=== PATIENT | male | born 1955 | race Asian ===

== ENCOUNTER 2021-05-19 21:57 | Inpatient (IN) | payer MEDICARE, OTHER ==
[~2021-05-19] VITALS: Ht 172.7 cm; Wt 68.2 kg
[2021-05-19] MEDS ORDERED: acetaminophen 325mg tablet PO ONE (22:15)
[2021-05-19] MEDS ORDERED: dexamethasone sod phosphate 10mg/ml inj IV STA (22:56)
--- NOTE | 2021-05-19 22:56 | NUR ---
WALKED TO BED 1 FROM DECK, INITIAL 02 86% THEN UP TO 91% RA.
[2021-05-19] MEDS ORDERED: normal saline 1000ml 1,000 ML IV ONE (23:00)
[2021-05-19 23:37] LABS: EOSINOPHILS % (AUTO) 0 % (0-6); LYMPHOCYTES # (AUTO) 0.5 X10'3 (1.1-4.8); LYMPHOCYTES % (AUTO) 5.6 % (21-51); MEAN PLATELET VOLUME 10.9 FL (7.4-10.4); MONOCYTES # (AUTO) 0.6 X10'3 (0-0.9); RED BLOOD COUNT 6.45 X10'6 (4.70-6.10)
[2021-05-19 23:38] LABS: BASOPHILS % (AUTO) 0.2 % (0-1); HEMATOCRIT 44.3 % (42.0-52.0); HEMOGLOBIN 14.3 g/dl (14.0-17.9); MEAN CORPUSCULAR HEMOGLOBIN 22.2 PG (27.0-31.0); MEAN CORPUSCULAR HGB CONC 32.3 g/dL (33.0-36.5); MEAN CORPUSCULAR VOLUME 68.7 FL (78-98); MONOCYTES % (AUTO) 6.8 % (2-12); NEUTROPHILS # (AUTO) 7.2 X10'3 (1.8-7.7); NEUTROPHILS % (AUTO) 87.4 % (42-75); PLATELET COUNT 170 X10'3 (140-440); RED CELL DISTRIBUTION WIDTH 13.9 % (11.5-14.5); WHITE BLOOD COUNT 8.3 X10'3 (4.5-11.0)
[2021-05-20 00:10] LABS: ALANINE AMINOTRANSFERASE 423 U/L (12-78); ALBUMIN 2.5 G/DL (3.4-5.0); ALBUMIN/GLOBULIN RATIO 0.6 (1.1-1.5); ALKALINE PHOSPHATASE 124 IU/L (46-116); ANION GAP 9 (8-16); ASPARTATE AMINO TRANSFERASE 232 U/L (10-37); BILIRUBIN,TOTAL 1.2 MG/DL (0.1-1.0); BLOOD UREA NITROGEN 19 MG/DL (7-18); BUN/CREATININE RATIO 14.4 (5.4-32.0); CALCIUM 8.2 MG/DL (8.5-10.1); CHLORIDE 98 MMOL/L (99-107); CREATININE 1.32 MG/DL (0.60-1.10); GLUCOSE 105 MG/DL (70-104); POTASSIUM 4.6 MMOL/L (3.5-5.1); SODIUM 129 MMOL/L (135-145); TOTAL CARBON DIOXIDE 21.9 MMOL/L (24-32); TOTAL PROTEIN 6.9 G/DL (6.4-8.2); eGFR 54 ML/MIN
[2021-05-20 00:35] LABS: C-REACTIVE PROTEIN 5.93 MG/DL (0.0-0.5); FERRITIN 875 NG/ML (26-388); LACTATE DEHYDROGENASE 382 U/L (85-227); TROPONIN I < 0.04 NG/ML (0.0-0.05)
[2021-05-20 00:37] LABS: LARGE PLATELETS FEW; MICROCYTOSIS 2+; PLATELET ESTIMATE NORMAL
[2021-05-20 00:40] LABS: D-DIMER 0.83 MG/L FEU (0-0.50)
[2021-05-20] MEDS ORDERED: iohexol 350MG/ML 100ml bottle IV ONE (01:03)
[2021-05-20] MEDS ORDERED: acetaminophen 325mg tablet PO PRN (01:55)
[2021-05-20] MEDS ORDERED: potassium Cl 40MEQ/1/2NS 520ml 520 ML IV PRN ×2 (01:55)
[2021-05-20] MEDS ORDERED: magnesium 4gm in 100ml NS 100 ML IV PRN (01:55)
[2021-05-20] MEDS ORDERED: magnesium Cl slow-release 64mg tablet PO PRN (01:55)
[2021-05-20] MEDS ORDERED: magnesium 2GM in 50ml NS 50 ML IV PRN (01:55)
[2021-05-20] MEDS ORDERED: potassium Cl 20 mEq SR tablet PO PRN ×2 (01:55)
[2021-05-20] MEDS ORDERED: ondansetron/PF 4mg/2ml inj IV PRN (01:55)
[2021-05-20] MEDS: normal saline 1000ml 1,000 ML IV SCH ×3 (02:07→21:23)
[2021-05-20] MEDS ORDERED: NO HOME MEDS (02:09)
--- NOTE | 2021-05-20 06:25 | NUR ---
PAGER ID: [phone] MESSAGE: Clem Lui [id number] Pt. arrived from ER. Needing 4LPM via N/c to sat at 91% and BP 86/43 with hr 69. Want me to give liter bolus per protocol? Yarely [id number]
[2021-05-20 06:26] VITALS: BP 86/43
[2021-05-20] MEDS ORDERED: normal saline 1000ml 1,000 ML IVB ONE (06:40)
--- NOTE | 2021-05-20 06:48 | NUR ---
Gave report to Darcie OGDEN.
--- NOTE | 2021-05-20 06:49 | NUR ---
Patient in room ORTHO 4006. I have received report from ALIN Pritchett and had the opportunity to ask questions and assume patient care.
[2021-05-20] MEDS: K and/or MAG REPLACEMENT MC SCH ×2 (08:00→20:00)
[2021-05-20] MEDS: dexamethasone 4mg tablet PO SCH (08:24)
[2021-05-20] MEDS: enoxaparin 40mg/0.4ml syringe SUBCUT SCH (08:24)
[2021-05-20 10:00] VITALS: BP 105/67
[2021-05-20 10:47] LABS: ALANINE AMINOTRANSFERASE 342 U/L (12-78); ALBUMIN 2.3 G/DL (3.4-5.0); ALBUMIN/GLOBULIN RATIO 0.5 (1.1-1.5); ALKALINE PHOSPHATASE 114 IU/L (46-116); ASPARTATE AMINO TRANSFERASE 127 U/L (10-37); BILIRUBIN,DIRECT 0.5 MG/DL (0-0.3); BILIRUBIN,TOTAL 0.9 MG/DL (0.1-1.0); TOTAL PROTEIN 6.7 G/DL (6.4-8.2)
[2021-05-20 14:00] VITALS: BP 117/72
--- NOTE | 2021-05-20 16:42 | NUR ---
Page Sent PAGER ID: [phone] MESSAGE: SAM [id number] RE: MARIKA BEDOLLA [id number] PT'S ULTRASOUND HAS BEEN READ AND REPORT IS AVAILABLE. STATES THERE IS A SUGGESTION OF PORTAL HTN.
--- NOTE | 2021-05-20 18:29 | NUR ---
Problems reprioritized. Patient report given, questions answered & plan of care reviewed with ALIN LION.
[2021-05-20 18:30] VITALS: BP 114/70
[2021-05-20] MEDS ORDERED: temazepam 15mg capsule PO PRN (21:00)
[2021-05-20 22:00] VITALS: BP 110/69
[2021-05-21 02:10] VITALS: BP 107/65
[2021-05-21 06:00] VITALS: BP 108/63
--- NOTE | 2021-05-21 06:08 | NUR ---
Patient in room ORTHO 4006. I have received report from ALIN LION and had the opportunity to ask questions and assume patient care.
[2021-05-21 07:33] LABS: BASOPHILS % (AUTO) 0.1 % (0-1); EOSINOPHILS % (AUTO) 0 % (0-6); HEMATOCRIT 41.1 % (42.0-52.0); HEMOGLOBIN 12.8 g/dl (14.0-17.9); LYMPHOCYTES # (AUTO) 0.4 X10'3 (1.1-4.8); LYMPHOCYTES % (AUTO) 3.1 % (21-51); MEAN CORPUSCULAR HEMOGLOBIN 21.6 PG (27.0-31.0); MEAN CORPUSCULAR HGB CONC 31.2 g/dL (33.0-36.5); MEAN CORPUSCULAR VOLUME 69.2 FL (78-98); MEAN PLATELET VOLUME 11.1 FL (7.4-10.4); MONOCYTES # (AUTO) 0.6 X10'3 (0-0.9); MONOCYTES % (AUTO) 4.6 % (2-12); NEUTROPHILS # (AUTO) 11.8 X10'3 (1.8-7.7); NEUTROPHILS % (AUTO) 92.2 % (42-75); PLATELET COUNT 172 X10'3 (140-440); RED BLOOD COUNT 5.93 X10'6 (4.70-6.10); RED CELL DISTRIBUTION WIDTH 14.1 % (11.5-14.5); WHITE BLOOD COUNT 12.8 X10'3 (4.5-11.0)
[2021-05-21 07:48] LABS: ANION GAP 10 (8-16); BLOOD UREA NITROGEN 17 MG/DL (7-18); BUN/CREATININE RATIO 21.5 (5.4-32.0); CALCIUM 7.7 MG/DL (8.5-10.1); CHLORIDE 107 MMOL/L (99-107); CREATININE 0.79 MG/DL (0.60-1.10); GLUCOSE 119 MG/DL (70-104); MAGNESIUM 2.5 MG/DL (1.5-2.4); POTASSIUM 4.3 MMOL/L (3.5-5.1); SODIUM 138 MMOL/L (135-145); TOTAL CARBON DIOXIDE 21.1 MMOL/L (24-32); eGFR > 90 ML/MIN
[2021-05-21] MEDS: normal saline 1000ml 1,000 ML IV SCH (07:54)
[2021-05-21] MEDS: enoxaparin 40mg/0.4ml syringe SUBCUT SCH ×2 (07:54→21:00)
[2021-05-21] MEDS: dexamethasone 4mg tablet PO SCH (07:54)
[2021-05-21] MEDS: K and/or MAG REPLACEMENT MC SCH ×2 (08:00→20:00)
[2021-05-21 10:00] VITALS: BP 108/60
[2021-05-21 10:43] LABS: HYPOCHROMASIA 1+; MICROCYTOSIS 2+; PLATELET ESTIMATE NORMAL
[2021-05-21 14:00] VITALS: BP 113/63
[2021-05-21] MEDS: methylPREDNISolone sod succ/PF 40mg inj. IV SCH (15:31)
[2021-05-21 18:30] VITALS: BP 109/72
--- NOTE | 2021-05-21 18:42 | NUR ---
Problems reprioritized. Patient report given, questions answered & plan of care reviewed with ALIN LION.
[2021-05-21] MEDS: famotidine 20mg tablet PO SCH (20:59)
[2021-05-21 22:00] VITALS: BP 114/75
[2021-05-22] MEDS: methylPREDNISolone sod succ/PF 40mg inj. IV SCH ×3 (00:34→15:27)
[2021-05-22 02:00] VITALS: BP 128/78
[2021-05-22 06:00] VITALS: BP 111/73
--- NOTE | 2021-05-22 06:18 | NUR ---
Problems reprioritized. Patient report given, questions answered & plan of care reviewed with ALIN LION.
[2021-05-22] MEDS: famotidine 20mg tablet PO SCH (07:56)
[2021-05-22] MEDS: enoxaparin 40mg/0.4ml syringe SUBCUT SCH (07:56)
[2021-05-22] MEDS: K and/or MAG REPLACEMENT MC SCH (08:00)
[2021-05-22 08:29] LABS: BASOPHILS % (AUTO) 0.2 % (0-1); EOSINOPHILS % (AUTO) 0 % (0-6); HEMATOCRIT 38.8 % (42.0-52.0); HEMOGLOBIN 12.4 g/dl (14.0-17.9); LYMPHOCYTES # (AUTO) 0.3 X10'3 (1.1-4.8); LYMPHOCYTES % (AUTO) 3.1 % (21-51); MEAN CORPUSCULAR HGB CONC 32.1 g/dL (33.0-36.5); MEAN CORPUSCULAR VOLUME 68.5 FL (78-98); MONOCYTES # (AUTO) 0.3 X10'3 (0-0.9); MONOCYTES % (AUTO) 2.5 % (2-12); NEUTROPHILS # (AUTO) 10.1 X10'3 (1.8-7.7); NEUTROPHILS % (AUTO) 94.2 % (42-75); PLATELET COUNT 200 X10'3 (140-440); RED BLOOD COUNT 5.66 X10'6 (4.70-6.10); RED CELL DISTRIBUTION WIDTH 14.3 % (11.5-14.5); WHITE BLOOD COUNT 10.8 X10'3 (4.5-11.0)
[2021-05-22 08:36] LABS: ANION GAP 7 (8-16); BLOOD UREA NITROGEN 16 MG/DL (7-18); BUN/CREATININE RATIO 18.4 (5.4-32.0); C-REACTIVE PROTEIN 1.16 MG/DL (0.0-0.5); CALCIUM 8.1 MG/DL (8.5-10.1); CHLORIDE 107 MMOL/L (99-107); CREATININE 0.87 MG/DL (0.60-1.10); GLUCOSE 99 MG/DL (70-104); MAGNESIUM 2.4 MG/DL (1.5-2.4); POTASSIUM 4.5 MMOL/L (3.5-5.1); SODIUM 141 MMOL/L (135-145); TOTAL CARBON DIOXIDE 26.8 MMOL/L (24-32); eGFR 88 ML/MIN
[2021-05-22 08:41] LABS: D-DIMER 0.62 MG/L FEU (0-0.50)
--- NOTE | 2021-05-22 08:46 | NUR ---
O2 Sat at rest on room air:__86_% If below 89%: Recovery O2 Sat at rest on _2__LPM:___%:__95_% via____NASAL CANNULA (mask/nasal cannula, etc..) No further documentation is necessary. If O2 Sat did not drop below 89% on room air,ambulate patient on room air. O2 Sat while ambulating on room air:___% Recovery O2 Sat while ambulating on ___LPM:___% No further documentation is necessary. If patient does not drop below 89% while ambulating, he/she does not qualify for home O2.
[2021-05-22 10:00] VITALS: BP 95/51
--- NOTE | 2021-05-22 13:53 | NUR ---
Page Sent PAGER ID: [phone] MESSAGE: SAM [id number] RE: MARIKA BEDOLLA [phone] DR. BEDOLLA IS REQUESTING TO STAY ONE MORE DAY WITH YOUR PERMISSION. THANK YOU!
[2021-05-22 13:55] LABS: ANISOCYTOSIS 1+; MICROCYTOSIS 2+; PLATELET ESTIMATE NORMAL
[2021-05-22 13:56] LABS: LARGE PLATELETS FEW
[2021-05-22 14:00] VITALS: BP 118/71
[2021-05-22] MEDS ORDERED: DEC4T PO (17:03)
[2021-05-22] MEDS ORDERED: [UNRECOGNIZED DRUG - OTHER] (17:03)
--- NOTE | 2021-05-22 17:12 | NUR ---
D/C INSTRUCTIONS GIVEN, QUESTIONS ANSWERED. BELONGINGS GATHERED BY NURSE AND SENT WITH PT. IV D/C'D, CANNULA INTACT, NO COMPLICATIONS. D/C'D IN STABLE CONDITION TO HOME IN PRIVATE VEHICLE, ACCOMPANIED BY . PT LEFT FLOOR AT 1650.
== END 2021-05-22 16:45 | disposition home or self-care (01) | DRG 177 ==
LOC: ER 21:57 → ED HOLD 05-20 01:54 → ORTHO 4S 05-20 05:40
PROVIDERS: ADMIT Internal Medicine; ATTEND Internal Medicine
PROC: B32T1ZZ Computerized Tomography (CT Scan) of Left Pulmonary Artery using Low Osmolar Contrast (ICD-10-PCS; principal; 2021-05-20)
PROC: B3201ZZ Computerized Tomography (CT Scan) of Thoracic Aorta using Low Osmolar Contrast (ICD-10-PCS; 2021-05-20)
PROC: B32S1ZZ Computerized Tomography (CT Scan) of Right Pulmonary Artery using Low Osmolar Contrast (ICD-10-PCS; 2021-05-20)
DX: U07.1 COVID-19 (principal); J96.01 Acute respiratory failure with hypoxia; J12.82 Pneumonia due to coronavirus disease 2019; E87.1 Hypo-osmolality and hyponatremia; N17.9 Acute kidney failure, unspecified; R74.01 Elevation of levels of liver transaminase levels; Z91.018 Allergy to other foods
CPT/HCPCS: 36415; 71045; 71275; 80048; 80053; 80076; 82728; 83615; 83735; 83880; 84145; 84484; 85008; 85025; 85379; 85384; 86140; 87081; 93005; 93975; 99285; G0378; J1100; J1650; J2920; J7030; Q9967